=== PATIENT | female | born 1940 | race Caucasian/White ===

== ENCOUNTER → 2024-03-25 13:45 | Outpatient (REF) | payer MEDICARE, SELFPAY | LOC: HWWDC 13:45 | PROVIDERS: ATTENDING PHYSICIAN Nurse Practitioner Adult Health | DX: Z12.31 Encounter for screening mammogram for malignant neoplasm of breast (principal) | CPT/HCPCS: 77063; 77067 ==

== ENCOUNTER → 2024-06-11 07:48 | Outpatient (REF) | payer MEDICARE, SELFPAY | LOC: DHCBC/DCA 07:48 | PROVIDERS: ATTENDING PHYSICIAN Internal Medicine Cardiovascular Disease; FAMILY PHYSICIAN Nurse Practitioner Adult Health | DX: R53.83 Other fatigue (principal); R00.1 Bradycardia, unspecified; I44.7 Left bundle-branch block, unspecified; R94.31 Abnormal electrocardiogram [ECG] [EKG] | CPT/HCPCS: 78452; 93017; A9500; J2785 ==

== ENCOUNTER → 2024-07-02 14:48 | Outpatient (REF) | payer MEDICARE, SELFPAY | LOC: HWRCS 14:48 | PROVIDERS: ATTENDING PHYSICIAN Internal Medicine Cardiovascular Disease; FAMILY PHYSICIAN Nurse Practitioner Adult Health | DX: R53.83 Other fatigue (principal); R00.1 Bradycardia, unspecified; I44.7 Left bundle-branch block, unspecified | CPT/HCPCS: 93306 ==

== ENCOUNTER → 2024-09-29 09:52 | Outpatient (REF) | payer MEDICARE, SELFPAY ==
[2024-09-29 12:20] LABS: % Immature Granulocytes 0.3 % (0-0.5); % Monocytes 13.9 % (1.7-9.3); % Neutrophils 52.8 % (42.2-75.2); Absolute Basophils 0.1 10^3/uL (0-0.2); Absolute Eosinophils 0.1 10^3/uL (0-0.7); Absolute Lymphocytes 1.2 10^3/uL (1.2-3.4); Absolute Monocytes 0.6 10^3/uL (0.1-0.6); Absolute Neutrophils 2.1 10^3/uL (1.4-6.5); Hematocrit 42.9 % (37.0-47.0); Hemoglobin 14.2 g/dL (12.0-16.0); Mean Corp Hgb Conc. 33.1 g/dL (33.0-37.0); Mean Corpuscular Hgb 32.4 pg (27.0-31.0); Mean Corpuscular Volume 97.9 fL (81.0-99.0); Mean Platelet Volume 10.7 fL (7.4-10.4); Nucleated Red Blood Cells % 0 %; Platelet Count 252 10^3/uL (130-400); Red Blood Cell Count 4.38 10^6/uL (4.20-5.40); Red Cell Dist. Width 13.4 % (11.5-14.5)
[2024-09-29 12:44] LABS: ALT (SGPT) 16 U/L (0-35); AST (SGOT) 28 U/L (14-36); Alkaline Phosphatase 49 U/L (38-126); Blood Urea Nitrogen 18 mg/dl (7-17); Calcium 8.9 mg/dl (8.4-10.2); Carbon Dioxide 31 mmol/L (22-30); Chloride 103 mmol/L (98-107); Glucose 85 mg/dl (70-99); HDL Cholesterol 61 mg/dl; LDL Cholesterol, Calculated 83 mg/dl; Potassium 4.7 mmol/L (3.5-5.1); Sodium 143 mmol/L (135-145); Total Bilirubin 0.6 mg/dl (0.2-1.3); Total Cholesterol 161 mg/dl (50-199); Total Protein 6.2 g/dl (6.3-8.2); Triglyceride 88 mg/dl (10-149); Very Low Density Lipoprotein 17 mg/dl (0-30); eGFR > 60.00
[2024-09-29 12:59] LABS: Vitamin D, 25-OH*** 49.4 ng/mL (30-80)
[2024-09-29 13:12] LABS: TSH Reflex To Free T4 1.62 uIU/ml (0.47-4.68)
[2024-09-30 10:38] LABS: Glycohemoglobin (HgbA1c) 4.9 % (4.0-5.6)
== END ==
LOC: HWLAB 09:52
PROVIDERS: ATTENDING PHYSICIAN Nurse Practitioner Adult Health
DX: I10 Essential (primary) hypertension (principal); E03.9 Hypothyroidism, unspecified; E78.00 Pure hypercholesterolemia, unspecified; Z79.899 Other long term (current) drug therapy; E55.9 Vitamin D deficiency, unspecified; R73.01 Impaired fasting glucose
CPT/HCPCS: 36415; 80053; 80061; 82306; 83036; 84443; 85025

== ENCOUNTER → 2024-12-23 09:12 | Outpatient (REF) | payer MEDICARE, SELFPAY ==
[2024-12-23 12:21] LABS: ALT (SGPT) 16 U/L (0-35); AST (SGOT) 27 U/L (14-36); Albumin 4.3 g/dl (3.5-5.0); Alkaline Phosphatase 57 U/L (38-126); Blood Urea Nitrogen 16 mg/dl (7-17); Calcium 9.1 mg/dl (8.4-10.2); Carbon Dioxide 28 mmol/L (22-30); Chloride 103 mmol/L (98-107); Glucose 93 mg/dl (70-99); Potassium 4.5 mmol/L (3.5-5.1); Sodium 137 mmol/L (135-145); Total Bilirubin 0.9 mg/dl (0.2-1.3); Total Protein 6.4 g/dl (6.3-8.2); eGFR > 60.00
== END ==
LOC: HWLAB 09:12
PROVIDERS: ATTENDING PHYSICIAN Nurse Practitioner Adult Health
DX: I10 Essential (primary) hypertension (principal)
CPT/HCPCS: 36415; 80053

== ENCOUNTER → 2025-01-21 14:05 | Outpatient (REF) | payer MEDICARE, SELFPAY | LOC: HWRAD 14:05 | PROVIDERS: ATTENDING PHYSICIAN Nurse Practitioner Adult Health | DX: Z78.0 Asymptomatic menopausal state (principal) | CPT/HCPCS: 77080 ==

== ENCOUNTER → 2025-03-26 10:02 | Outpatient (REF) | payer MEDICARE, SELFPAY | LOC: HWWDC 10:02 | PROVIDERS: ATTENDING PHYSICIAN Nurse Practitioner Adult Health | DX: Z12.31 Encounter for screening mammogram for malignant neoplasm of breast (principal) | CPT/HCPCS: 77063; 77067 ==

== ENCOUNTER 2025-06-09 07:09 | Inpatient (IN) | payer MEDICARE, SELFPAY ==
[2025-06-08] VITALS (7 sets, daily range): BP systolic 187–202; BP diastolic 85–167
[2025-06-08 22:14] LABS: Glucose - Point of Care 121 mg/dl (70-99)
--- NOTE | 2025-06-08 22:15 | EDRN ---
Pt intubated by Dr. Silveira, 7.5 ETT at 23 at the lip.
[2025-06-08 22:53] LABS: Hematocrit 40.3 % (37.0-47.0); Hemoglobin 13.8 g/dL (12.0-16.0); Mean Corp Hgb Conc. 34.2 g/dL (33.0-37.0); Mean Corpuscular Volume 95.3 fL (81.0-99.0); Nucleated Red Blood Cells % 0 %; Platelet Count 250 10^3/uL (130-400); Red Cell Dist. Width 13.0 % (11.5-14.5)
[2025-06-08 23:05] LABS: INR 1.00; PT 13.5 Sec (11.4-14.6)
[2025-06-08 23:17] LABS: ALT (SGPT) 12 U/L (0-35); AST (SGOT) 30 U/L (14-36); Albumin 4.3 g/dl (3.5-5.0); Alkaline Phosphatase 57 U/L (38-126); Blood Urea Nitrogen 12 mg/dl (7-17); Calcium 8.5 mg/dl (8.4-10.2); Carbon Dioxide 24 mmol/L (22-30); Chloride 106 mmol/L (98-107); Glucose 132 mg/dl (70-99); Potassium 3.6 mmol/L (3.5-5.1); Sodium 138 mmol/L (135-145); Total Protein 6.5 g/dl (6.3-8.2); eGFR > 60.00
[2025-06-08 23:19] LABS: Troponin I < 0.012 ng/ml
[2025-06-08] MEDS: MORPHINE SULFATE 4 MG IV (23:30)
[2025-06-09] VITALS (11 sets, daily range): BP systolic 101–200; BP diastolic 52–100
--- NOTE | 2025-06-09 00:21 | ED.CVA ---
History of Present Illness
General
Chief Complaint: CVA/TIA Symptoms
Source: patient and family
Time Seen by Provider: 06/08/25 22:18
Onset of Stroke Symptoms
Onset of symptoms known: Yes
Date of onset of symptoms: 06/08/25
History of Present Illness
History of Present Illness:
Note:
CHIEF COMPLAINT(S)
Altered mental status, found unresponsive.
HISTORY OF PRESENT ILLNESS
The patient is an 85-year-old female who presented with altered mental status after being found unresponsive. According to EMS, she had consumed a drink or two. Her family informed EMS that she experienced a sudden headache before collapsing and
becoming unresponsive. Her son reported that she appeared unsteady after drinking, assisted her to bed, and later heard her fall. He helped her back into bed, after which she complained of a severe headache and emergency services were called. She
was comatose upon EMS arrival and had vomited several times.
ADDITIONAL HISTORY OBTAINED FROM SOURCES OTHER THAN THE PATIENT
Per EMS, the patient was noted to vomit multiple times, raising concerns about airway patency. Her family reported a history of mild hypertension and alcohol intake prior to the event. The patients son detailed her instability after drinking and
provided insight into the sequence of events leading up to her call for medical assistance.
CHRONIC MEDICAL CONDITIONS SIGNIFICANTLY AFFECTING CARE
Hypertension.
PHYSICAL EXAM
General: Comatose upon arrival. GCS 3
Neck: Trachea midline.
Eye, Ears, Nose, Mouth, and Throat: Sonorous respirations
Cardiovascular: Normal peripheral perfusion, No edema.
Respiratory: Respirations are sonorous.
Gastrointestinal: Abdomen nondistended.
Back: Nontraumatic
Musculoskeletal: No edema noted, no cyanosis
Neurological: Unresponsive upon arrival.
Psychiatric: Unable to assess due to altered mental status.
PROBLEM LIST
Acute:
- Altered mental status
- Vomiting
- Headache
Chronic:
- Hypertension
PLAN
Further diagnostic testing to assess for potential causes of altered mental status and headache. Ensuring airway protection due to vomiting and unresponsiveness.
DIFFERENTIAL DIAGNOSIS
The Differential Diagnosis includes, in no particular order and is not limited to:
- Intracranial hemorrhage
- Stroke
- Alcohol intoxication
- Seizure
- Syncope
- Electrolyte imbalance
- Infection (e.g., meningitis, encephalitis)
- Drug overdose or interaction
- Hypoglycemia
- Cardiac event (e.g., arrhythmia)
EKG
My independent EKG interpretation is:
- Rhythm: Undetermined sinus rhythm with TBCs (Triplets of bigeminy or trigeminy).
- Complex: Wide QRS complex.
- Ischemic Changes: No acute ischemic changes observed.
Disposition:
SUMMARY OF ENCOUNTER
An 85-year-old female presented to the emergency department unresponsive after a fall. A CT scan revealed a large subdural hematoma with midline shift and early uncal herniation. The patient was intubated on arrival for airway protection but
remained comatose. Her family reported that the patient did not wish for aggressive measures, ventilator support, or advanced neurosurgical interventions. After understanding the implications and potential urgency for transfer, the family reinforced
the patients wishes to forgo such measures. The decision was made to not proceed with any aggressive interventions, and plans were developed to extubate her, wait for spiritual guidance from a numerical control machine operator, and manage her comfort with morphine as needed.
INDEPENDENT REVIEW OF LABS AND INTERPRETATION OF TESTS
My independent interpretation of the CT scan shows a large subdural hematoma with midline shift and early uncal herniation.
PLAN
The plan was to proceed with extubation after family discussions, ensure the patients comfort with morphine administration, and provide spiritual care by having a numerical control machine operator come to the bedside as requested by the family.
MEDICAL DECISION MAKING
-Complexity of Data Reviewed: Chronic conditions affecting care include hypertension. Differential diagnosis includes intracranial hemorrhage, stroke, alcohol intoxication, seizure, syncope, electrolyte imbalance, infection, drug overdose or
interaction, hypoglycemia, cardiac event.
-Data:
Category 1
Clinical information was obtained from an independent historian through the patients family and EMS reports.
Category 2
My independent interpretation of the CT scan revealed a large subdural hematoma with midline shift and early uncal herniation.
Category 3
Decision making about management was discussed with the patients family, who were informed about the implications of her condition and respected her previously stated wishes against aggressive interventions.
DIAGNOSIS
Subdural hematoma, large with midline shift (ICD-10: S06.5X9A)
Uncal herniation (ICD-10: G93.5)
45 patient was extubated due to family's wishes. Tolerated procedure well and morphine has been given for comfort. Family at bedside. Property Master and noxious weeds and pest inspector also at bedside prior to extubation
secretions suctioned. Family at bedside. Does appear comfortable remains comatose
300 still with spontaneous respirations and pulse. Continue comfort measures. Admit for comfort measures only
Past History
Past History
ED Past Medical History: HTN
ED Past Surgical History: Bowel resection, and Other (hernia)
Patient has exhibited threatening behavior?: No
PSI?: No
Phy Exam
Physical Exam
Physical Exam:
.
Course
Orders/Labs/Results
Orders:
Orders
06/08/25 22:16
CT Head W/o Iv Contrast Stat
Comment:
Reason For Exam: Severe MURRIETA, unresponsive
06/08/25 22:18
Cardiac Monitoring- Treatment ONCE
06/08/25 22:19
CR Chest Portable - 1 View Urgent
Comment:
Reason For Exam: intubation, unresponsive
Reason Study Needs to be Portable: Patient Unstable
06/08/25 22:26
Midazolam HCl [Versed] 5 mg .ROUTE .STK-MED ONE
06/08/25 22:43
Complete Blood Count/With Diff Urgent
Comprehensive Metabolic Panel Urgent
Prothrombin Time Urgent
Troponin I Urgent
06/08/25 23:28
Morphine Sulfate 4 mg .ROUTE .STK-MED ONE
06/08/25 23:29
Morphine Sulfate 4 mg IV NOW STA
06/09/25 00:06
Morphine Sulfate 4 mg .ROUTE .STK-MED ONE
06/09/25 00:28
Morphine Sulfate 4 mg .ROUTE .STK-MED ONE
06/09/25 00:29
Morphine Sulfate 4 mg IV NOW STA
06/09/25 01:39
Morphine Sulfate 4 mg .ROUTE .STK-MED ONE
06/09/25 01:41
Morphine Sulfate 4 mg IV NOW STA
06/09/25 02:03
Ondansetron Injectable [Zofran] 4 mg .ROUTE .STK-MED ONE
06/09/25 02:04
Ondansetron Injectable [Zofran] 4 mg IV NOW STA
Abnormal Lab Results
06/08/25 06/08/25
22: 22:43
MCH 32.6 H pg
(27.0-31.0)
Absolute Monos (auto) 0.8 H 10^3/uL
(0.1-0.6)
Glucose 132 H mg/dl
(70-99)
POC Glucose 121 H mg/dl
(70-99)
06/08/25 22:43
06/08/25 22:43
Vital Signs
Initial and Last Documented VS:
Initial Vital Signs
Temp Pulse Resp BP Pulse Ox
97.7 F 63 16 202/85 98
06/08/25 22:10 06/08/25 22:10 06/08/25 22:10 06/08/25 22:10 06/08/25 22:10
Last Documented Vital Signs
Temp Pulse Resp BP Pulse Ox
97.7 F 68 20 169/70 75
06/08/25 22:10 06/09/25 03:00 06/09/25 03:00 06/09/25 02:19 06/09/25 03:00
Procedures
Intubations
Procedure completed by: DR Silveira
Method of Intubation: glidescope
Tube size (cm): 7.5
Placement confirmed by: auscutation, CXR and capnography
Breath sounds after intubation: equal
Intubation complications: no complications
*Radiology
Radiology exam reviewed: preliminary read by ED provider (Large subdural hematoma)
*Pulse Oximetry
SaO2: 98
Oxygen Mode of Delivery: Non-rebreather mask
Patient hypoxic: no
*Snowboard Instructor Interpretation
Rate: normal
Interpretation: normal
Rhythm: sinus
*Critical Care Note
Total Time (30-74mins, 75-104mins- exclusive of procedures): 95-minutes
Data Reviewed
Source: family and ambulance crew
ED Attending Note
-
Portions of this chart may have been created with voice recognition software.� Occasional wrong word or��sound alike� substitutions may have occurred due to the inherent limitations of voice recognition software.
Discharge Plan
Departure
Patient Disposition: Admit
Date of Disposition: 06/09/25
Time of Disposition: 00:23
Admit to: Med/Surg
Presentation/result/management discussed w/ accepting MD/DO: Hospitalist
Discharge Problem:
Acute subdural hematoma, Coma, Comfort measures only status
Prescriptions:
No Action
Hydrochlorothiazide 12.5 MG
12.5 mg PO
Folic Acid 400 MG
400 mg PO DAILY
niacin 400 MG capsule, extended release
400 mg PO
calcium carbonate-vitamin D3 1 TAB tablet
1 tab PO TID
Fish Oil 1,000 Mg Capsule Capsule
1,000 mg PO
Fibercon
1 tab PO DAILY
vit 1-iron [id number] 1 TAB tablet
1 tab PO
Iron
65 mg PO DAILY
Referrals:
Carissa Calderon CRNP [Family Provider, General]
Interventions
Interventions:
*Risk Screen - Suicide Last Done: 06/08/25 22:17
*General Assessment Last Done: 06/08/25 22:17
*Neglect/Abuse Screening Last Done: 06/08/25 22:17
*ED- Fall Risk Assessment Last Done: 06/08/25 22:17
*ED COVID-19 Vaccine History Last Done: 06/08/25 22:17
ED- Pulmonary Assessment Last Done: 06/08/25 22:54
ED- Neurological Assessment Last Done: 06/08/25 22:54
ED- Cardiac Assessment Last Done: 06/08/25 22:54
ED Swallowing Screen Last Done: 06/08/25 22:54
Discharge Date and Time
Print Language: SLOVENIAN
[2025-06-09] MEDS: MORPHINE SULFATE 4 MG IV ×4 (00:30→05:34)
--- NOTE | 2025-06-09 01:00 | CHAP ---
Lucho Cage, our reception clerk nurse assistant, was called in to attend the patient and her family. Fr. Jordi Plata of [facility] in [place] was called in as reception clerk system support developer to give Last Rites to Cindi, which he did. The family
requested that Cindi be put on the [facility] prayer list, which was done.
--- NOTE | 2025-06-09 01:40 | EDRN ---
Dr. Silveira and respiratory at the bedside. Pt extubated by Dr. Silveira per family wishes.
[2025-06-09] MEDS: ZOFRAN 4 MG IV ×4 (02:04→15:45)
--- NOTE | 2025-06-09 05:38 | RESPNOTE ---
pt was extubated (palliative) at 01:30. Md walter
--- NOTE | 2025-06-09 06:07 | HPS.HSE ---
Family Physician
-
Family Physician: Carissa Calderon
Chief Complaint
-
Unresponsive
History of Present Illness
Patient is an 85y F with PMH significant for hypertension and hypothyroidism who presents to ED for evaluation of unresponsiveness. History obtained from family and ED staff.
Patient reportedly struck her head fairly hard on a cabinet while cleaning several days ago. She noted no immediate issues beyond localized pain at that time. This evening she had a couple of drinks while visiting with family and seemed somewhat
unsteady afterwards. Family helped her to bed and later heard a loud noise. They responded to find the patient on the floor having fallen. She then complained of severe headache and started to have profuse N/V.
Patient was brought to the ED via EMS. She was unresponsive and with N/V raising concerns for airway maintenance. She was intubated in the ED.
CT scan was performed which showed a large L sided subdural hematoma with significant mass effect and midline shift.
Family arrived and discussed with ED staff in detail. They elected for extubation in the ED and pursuit of comfort above all else.
Patient was extubated to room air. She has continued to with intermittent emesis despite IV morphine and Zofran administration in the ED.
Medical History
Past Medical History
Past Medical History: Reports Other
Additional Past Medical History:
Hypertension
Hypothyroidism
AGUS
GERD
Past Surgical History: Reports Other
Additional Past Surgical History:
Colon Resection (cecal volvulus)
Hernia Repair
Social History
Tobacco: Non-smoker
Alcohol: Occasional
Drug: None
Family History
Family History: Not pertinent
Allergies / Home Medications
Allergies reflects when Allergies were last updated in [facility].
Home Medications with original date entered in [facility]
Allergy/Medication List:
Allergies
Allergy/AdvReac Type Severity Reaction Status Date / Time
No Known Allergies Allergy Verified 06/09/25 02:43
Home Medications
calcium 600 mg (as carbonate)-vitamin D3 5 mcg (200 unit) tablet 1 tab PO DAILY 06/09/25
citalopram 20 mg tablet 30 mg PO DAILY 06/09/25
famotidine 20 mg tablet (Pepcid) 20 mg PO DAILY 06/09/25
levothyroxine 25 mcg tablet 12.5 mcg PO DAILY 06/09/25
metoprolol succinate 25 mg tablet,extended release 24 hr (Toprol XL) 25 mg PO DAILY 06/09/25
simvastatin 40 mg tablet 40 mg PO QPM 06/09/25
Review of Systems
-
Unable to obtain full review of systems at this time due to: Patient Non-verbal
Physical Exam
Vital Signs
Vital Signs
Temp Pulse Resp BP Pulse Ox
97.7 F 85 19 166/59 74
06/08/25 22:10 06/09/25 05:00 06/09/25 05:00 06/09/25 04:52 06/09/25 04:20
Physical Exam
General: Other (85y F unresponsive at present.)
Respiratory: Other (Coarse breath sounds audible on exam. )
Cardiac: S1/S2 and Regular Rhythm
Musculoskeletal: No Edema
Neuro: Other (Unresponsive.)
Laboratory Results
-
06/08/25 22:43
06/08/25 22:43
Laboratory Results
PT 13.5 Sec (11.4-14.6) 06/08/25 22:43
INR 1.00 06/08/25 22:43
Total Bilirubin 0.7 mg/dl (0.2-1.3) 06/08/25 22:43
AST 30 U/L (14-36) 06/08/25 22:43
ALT 12 U/L (0-35) 06/08/25 22:43
Alkaline Phosphatase 57 U/L (38-126) 06/08/25 22:43
Troponin I < 0.012 ng/ml 06/08/25 22:43
Impression/Plan
-
A/P: Patient is an 85y F with PMH significant for hypertension and hypothyroidism who presents to ED unresponsive after complaining of severe headache and N/V at home.
Large Subdural Hematoma with Mass Effect / Midline Shift
- Admit for comfort measures.
- Continue morphine for comfort.
- Continue efforts to control emesis with Zofran, Haldol, Ativan, etc.
- Avoid finger sticks, lab draws, etc.
- Adjust med regimen as needed to ensure patient comfort.
Code Status: DNR / Comfort Care Only
--- NOTE | 2025-06-09 11:39 | CM ---
Reviewed the chart notes. Patient transferred from ED for comfort care. CM continues to be available to patient/family.
Plan: Comfort care.
[2025-06-09] MEDS: MORPHINE SULFATE 2 MG IV ×2 (12:11→15:46)
[2025-06-09] MEDS: VALIUM INJECTION 2 MG IV (12:12)
[2025-06-09] MEDS: TYLENOL/FEVERALL 650 MG RECTAL ×2 (14:04→20:11)
--- NOTE | 2025-06-09 17:10 | W.PN.UPDATE ---
Update Note
Progress Note Update
84-year-old female was brought in because of unresponsiveness she struck her head fairly hard on a cabinet while cleaning several days ago and also had a fall on the day. Patient was intubated in the ER CAT scan showed a large subdural hematoma
family arrived and elected extubation and comfort care
On examination patient is unresponsive appears to be comfortable
Pupils are unequal
CT reviewed by me shows large subdural hemorrhage
Plan
Morphine, benzos for symptom management
Morphine drip if needed
DNR status
Discussed with nursing at bedside
Discussed with family
[2025-06-10] MEDS: TYLENOL/FEVERALL 650 MG RECTAL ×4 (00:11→17:39)
[2025-06-10] MEDS: MORPHINE SULFATE 2 MG IV ×3 (07:14→17:39)
[2025-06-10] MEDS: ZOFRAN 4 MG IV ×2 (07:14→14:15)
[2025-06-10 07:15] VITALS: BP 119/72
--- NOTE | 2025-06-10 09:36 | CM ---
Reviewed the chart notes. Patient transferred from ED for comfort care. CM continues to be available to patient/family.
Plan: Comfort care.
--- NOTE | 2025-06-10 11:20 | W.PN.UPDATE ---
Update Note
Progress Note Update
84-year-old female was brought in because of unresponsiveness she struck her head fairly hard on a cabinet while cleaning several days ago and also had a fall on the day. Patient was intubated in the ER CAT scan showed a large subdural hematoma
family arrived and elected extubation and comfort care
On examination patient is unresponsive appears to be comfortable
CT reviewed by me shows large subdural hemorrhage
Plan
Morphine, Benzos for symptom management
Morphine drip if needed
DNR status
Discussed with family at bed side
[2025-06-10] MEDS: VALIUM INJECTION 2 MG IV (14:16)
[2025-06-10 19:51] VITALS: BP 142/77
[2025-06-10] MEDS: LEVSIN ORAL DROPS 0.125 MG SL (23:16)
[2025-06-11] MEDS: MORPHINE SULFATE 2 MG IV ×2 (03:15→09:20)
[2025-06-11] MEDS: LEVSIN ORAL DROPS 0.125 MG SL (03:21)
[2025-06-11] MEDS: ROBINUL 0.2 MG IV ×2 (03:37→09:20)
[2025-06-11 08:48] VITALS: BP 111/81
--- NOTE | 2025-06-11 10:10 | CM ---
Reviewed the chart notes. Patient receiving IV Morphine this morning. CM continues to be available to patient/family.
Plan: Comfort care continues.
--- NOTE | 2025-06-11 10:44 | PTCARENOTE ---
Pt . Family at bedside. Dr Miranda made aware.
--- NOTE | 2025-06-11 10:51 | W.PN.DEATH ---
Addendum entered and electronically signed by Shola Miranda MD 06/11/25 15:40:
Got a call from medical records office at and i was asked to touch base with fuller brush man and give more info on her case.
Case discussed with Mable in [employer]er brush [employer] office and went over the details.
Explained about large sudural hematoma as causing and fall. Unclear if fall caused the SDH or SDH causing fall. No external injuries noted.
Vice President Of Procurement ok to release certificate.
Original Note:
Pronouncement of
-
Called to see patient to pronounce.
No spontaneous heart tones or respirations noted.
Patient not responsive to verbal stimuli.
Patient is pronounced .
Time of : 10:44 (AM)
Date of : 06/11/25
Cause of : Large acute left subdural hematoma with significant mass effect and rightward midline shift
--- NOTE | 2025-06-11 10:52 | W.DCSUMMARY ---
Discharge Summary
Discharge Data
Date of Admission: 06/09/25
Date of Discharge: 06/11/25
-
Pending Results: No
Hospital Course
Primary diagnosis:
Large acute left subdural hematoma with significant mass effect and rightward midline shift
Secondary diagnosis:
Hypertension
Hypothyroidism
Obstructive sleep apnea
Gastroesophageal flux disease
Hospital course:
Brief summary
85 F unfortunately had a fall and sustained a Large acute left subdural hematoma with significant mass effect and rightward midline shift. Concern for developing left uncal and subfalcine herniation. Minor acute subdural blood products along the
falx and tentorial leaflets. She was unresponsive and presentation was intubated. After further discussing the goals of care with the family she was extubated to comfort care and she passed today at 10:44 AM.
she was on comfort measures and prior to my arrival for rounds she passed. pronouncement done today by me.
Son present at the bedside at the time of .
Rest in peace
Discharge Plan
-
Referrals:
Carissa Calderon CRNP [Family Provider, General]
Prescriptions:
No Action
calcium carbonate-vitamin D3 [Calcium + D] 600 mg-5 mcg (200 unit) Tablet
1 tab PO DAILY
simvastatin 40 mg Tablet
40 mg PO QPM
levothyroxine 25 mcg Tablet
12.5 mcg PO DAILY
citalopram 20 mg Tablet
30 mg PO DAILY
famotidine [Pepcid] 20 mg Tablet
20 mg PO DAILY
metoprolol succinate [Toprol XL] 25 mg Tablet Extended Release 24 Hr
25 mg PO DAILY
Discharge Date and Time
Print Language: MALAY
== END 2025-06-11 10:44 | disposition expired | DRG 84 ==
LOC: 2 NORTH 07:09
PROVIDERS: ADMITTING PHYSICIAN Hospitalist; ATTENDING PHYSICIAN Internal Medicine; EMERGENCY PHYSICIAN Emergency Medicine; FAMILY PHYSICIAN Nurse Practitioner Adult Health
PROC: 5A1935Z Respiratory Ventilation, Less than 24 Consecutive Hours (ICD-10-PCS; 2025-06-08)
DX: E03.9 Hypothyroidism, unspecified; G47.33 Obstructive sleep apnea (adult) (pediatric); I10 Essential (primary) hypertension; K21.9 Gastro-esophageal reflux disease without esophagitis; W19.XXXA Unspecified fall, initial encounter; Z66 Do not resuscitate
CPT/HCPCS: 70450; 71045; 80053; 82962; 84484; 85025; 85610; 93005